=== PATIENT | male | born 1975 | race Caucasian/White ===

== ENCOUNTER 2017-10-13 10:48 | Emergency (ER) | payer MEDICAID ==
[~2017-10-13] VITALS: Ht 182.9 cm; Wt 109.1 kg
[2017-10-13 10:57] VITALS: BP 169/117; Ht 182.9 cm; Wt 109.1 kg
[2017-10-13] MEDS ORDERED: BUPROPION HCL100 MG PO (10:59)
[2017-10-13] MEDS ORDERED: MOBIC7.5 MG PO (11:00)
[2017-10-13] MEDS ORDERED: AMITRIPTYLINE100 MG PO (11:00)
[2017-10-13] MEDS ORDERED: LITHIUM CARBON150 MG (11:00)
== END 2017-10-13 14:13 | disposition home or self-care (01) ==
LOC: D.ER 10:48
DX: R10.9 Unspecified abdominal pain (principal)